=== PATIENT | female | born 1955 | race Caucasian/White ===

== ENCOUNTER 2017-02-15 10:09 | Inpatient (IN) | payer BC, OTHER ==
[~2017-02-15] VITALS: Ht 157.5 cm; Wt 90.3 kg
[2017-02-15 10:12] VITALS: BP 140/78; PULSE 74; RESP 14; TEMP 98.2; O2SAT 98
[2017-02-15] MEDS ORDERED: ALLE60TA PO (10:39)
[2017-02-15] MEDS ORDERED: FENO50TA PO (10:39)
[2017-02-15] MEDS ORDERED: MONT10TA2 PO (10:39)
[2017-02-15] MEDS ORDERED: NEXI40CA PO (10:39)
[2017-02-15] MEDS ORDERED: [UNRECOGNIZED DRUG - CODE] IV (10:39)
[2017-02-15] MEDS ORDERED: LIPI20TA PO (10:39)
[2017-02-15] MEDS ORDERED: BYST5TAB2 PO (10:39)
[2017-02-15] MEDS ORDERED: FLUT1SPR5 EACH NARE (10:39)
[2017-02-15] MEDS ORDERED: VENTAER INH (10:39)
[2017-02-15] MEDS ORDERED: GABA600T PO (10:39)
[2017-02-15] MEDS ORDERED: ZANT300T PO (10:39)
[2017-02-15] MEDS ORDERED: METF1000 PO (10:39)
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
[2017-02-15] MEDS ORDERED: KETOROLAC TROMETHAMINE 60 MG/2 ML (IM) VIAL IM ONE (10:45)
--- NOTE | 2017-02-15 11:38 | RADRPT ---
EXAM DATE/TIME: 02/15/2017 11:17 [facility] COMPARISON: No previous studies available for comparison. INDICATIONS : Left ankle pain, fall. MEDICAL HISTORY : None. SURGICAL HISTORY : None. ENCOUNTER: Initial ACUITY: 1 day PAIN SCORE: 10/10 LOCATION: Left lateral ankle FINDINGS: Three view exam was performed of the left ankle. The bony structures are in normal alignment. No ev idence of fracture, dislocation, or soft tissue swelling. The ankle mortise is intact. No radiopaqu e foreign bodies are seen. Bony mineralization is normal. CONCLUSION: 1. No acute fracture or dislocation. Jose Aguilar MD on February 15, 2017 at 11:36 Board Certified Radiologist. This report was verified electronically.
--- NOTE | 2017-02-15 11:41 | RADRPT ---
EXAM DATE/TIME: 02/15/2017 11:14 [facility] COMPARISON: No previous studies available for comparison. INDICATIONS : Left knee pain, fall. MEDICAL HISTORY : None. SURGICAL HISTORY : None. ENCOUNTER: Initial ACUITY: 1 day PAIN SCORE: 10/10 LOCATION: Left anterior knee FINDINGS: There is a nondisplaced slightly comminuted depressed lateral tibial plateau fracture. Remaining osse ous structures appear intact. Mild soft tissue swelling about the knee. CONCLUSION: 1. Nondisplaced slightly comminuted depressed lateral tibial plateau fracture. Jose Aguilar MD on February 15, 2017 at 11:38 Board Certified Radiologist. This report was verified electronically.
[2017-02-15] MEDS ORDERED: SODIUM CHLORIDE 0.9% FLUSH 10 ML FLUSH IV FLUSH PRN (11:45)
--- NOTE | 2017-02-15 11:46 | RADRPT ---
EXAM DATE/TIME: 02/15/2017 11:21 [facility] COMPARISON: No previous studies available for comparison. INDICATIONS : Left foot pain, fall. MEDICAL HISTORY : None. SURGICAL HISTORY : None. ENCOUNTER: Initial ACUITY: 1 day PAIN SCORE: 8/10 LOCATION: Left lateral foot FINDINGS: Small osseous fragment projecting medial to the distal first metatarsal. Remaining osseous structures appear intact. Joint spaces are maintained. Mild soft tissue prominence in the medial forefoot. CONCLUSION: 1. Probable small avulsion fracture off the medial distal first metatarsal. Correlation with physical exam is recommended. Jose Aguilar MD on February 15, 2017 at 11:42 Board Certified Radiologist. This report was verified electronically.
--- NOTE | 2017-02-15 11:49 | RADRPT ---
EXAM DATE/TIME: 02/15/2017 11:16 [facility] COMPARISON: No previous studies available for comparison. INDICATIONS : Left leg pain, fall. MEDICAL HISTORY : None. SURGICAL HISTORY : None. ENCOUNTER: Initial ACUITY: 1 day PAIN SCORE: 10/10 LOCATION: Left proximal tibia FINDINGS: Redemonstration of lateral tibial plateau fracture. Remaining osseous structures are intact. Talar do me is intact. No significant soft tissue swelling. CONCLUSION: 1. Redemonstration of lateral tibial plateau fracture. Jose Aguilar MD on February 15, 2017 at 11:45 Board Certified Radiologist. This report was verified electronically.
[2017-02-15] MEDS ORDERED: MORPHINE SULFATE 4 MG/ML INJ IV PUSH ONE (12:15)
[2017-02-15] MEDS ORDERED: ONDANSETRON HCL 4 MG/2 ML VIAL IV PUSH ONE (12:15)
[2017-02-15 12:45] LABS: AUTOMATED NEUTROPHIL # 3.4 TH/MM3 (1.8-7.7); BASOPHIL % 0.6 % (0.0-2.0); EOSINOPHIL # 0.1 TH/MM3 (0-0.4); HEMATOCRIT 37.8 % (35.0-46.0); HEMO FLAGS DIFF FINAL; LYMPH % 31.4 % (9.0-44.0); LYMPHOCYTE # 1.9 TH/MM3 (1.0-4.8); MEAN CELL VOLUME 90.5 FL (80.0-100.0); MEAN CORPUSCULAR HEMOGLOBIN 30.4 PG (27.0-34.0); MEAN CORPUSCULAR HGB CONC 33.6 % (32.0-36.0); MONO % 9.9 % (0.0-8.0); NEUT % 56.1 % (16.0-70.0); PLATELET COUNT 240 TH/MM3 (150-450); RED BLOOD COUNT 4.18 MIL/MM3 (4.00-5.30); RED CELL DISTRIBUTION WIDTH 13.3 % (11.6-17.2)
[2017-02-15 13:07] LABS: ANION GAP 6 MEQ/L (5-15); AST (GOT) 36 U/L (15-37); BLOOD UREA NITROGEN 13 MG/DL (7-18); CHLORIDE 106 MEQ/L (98-107); GLOMERULAR FILTRATION RATE 75 ML/MIN (>89); POTASSIUM 4.2 MEQ/L (3.5-5.1); SODIUM (NA) 139 MEQ/L (136-145)
[2017-02-15 13:08] LABS: ALT (GPT) 51 U/L (10-53)
[2017-02-15 13:10] LABS: ALKALINE PHOSPHATASE 73 U/L (45-117); TOTAL BILIRUBIN ADULT 0.2 MG/DL (0.2-1.0)
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
[2017-02-15] MEDS ORDERED: GLUCAGON 1 MG/ML VIAL OTHER PRN (14:00)
[2017-02-15] MEDS ORDERED: DEXTROSE 50% IN WATER 50 ML VIAL(D50) IV PUSH PRN (14:00)
[2017-02-15] MEDS ORDERED: ALBUTEROL SULFATE 90 MCG/ACT HFA 8 GM INHALER INH PRN (14:00)
--- NOTE | 2017-02-15 14:09 | HHI.HP ---
[facility] Service [facility] Primary Care Physician Unknown Admission Diagnosis tibial plateau fracture Diagnoses: (1) Tibial plateau fracture, left Diagnosis: Principal Chief Complaint: pain to the left leg after a fall Travel History International Travel<30 Days: No Contact w/Intl Traveler <30 Da: No Traveled to Known Affected Are: No History of Present Illness patient is a 61 y/o female with history of asthma, diabetes,hypertension,immune deficiency, who was brought to ER after a fall. she says [place] dock [place] hit her after which she fell on her left leg and started to have pain to the left leg and left foot. she denies any head trauma or syncope. pain was mild to moderate at the time of my evaluation. she denies any chest pain, abdominal pain, dizziness or any other complaints. Review of Systems Constitutional: DENIES: Fever, Weight loss, Chills, Night Sweats Eyes: DENIES: Blurred vision, Diplopia, Vision loss, Double Vision Ears, nose, mouth, throat: DENIES: Tinnitus, Vertigo, Throat pain, Epistaxis Respiratory: DENIES: Apneas, Cough, Snoring, Wheezing, Hemoptysis, Sputum production, Shortness of breath Cardiovascular: DENIES: Chest pain, Palpitations, Syncope, Dyspnea on Exertion , PND, Lower Extremity Edema, Orthopnea, Claudication Gastrointestinal: DENIES: Abdominal pain, Black stools, Bloody stools, Constipation, Diarrhea, Nausea, Vomiting, Difficulty Swallowing, Anorexia Genitourinary: DENIES: Urinary frequency, Urgency, Hematuria, Dysuria Musculoskeletal: COMPLAINS OF: Joint pain (left leg.), DENIES: Muscle aches, Stiffness, Joint Swelling Integumentary: DENIES: Rash Neurologic: DENIES: Abnormal gait, Headache, Localized weakness, Paresthesias, Seizures, Speech Problems, Tremor, Poor Balance Psychiatric: DENIES: Anxiety, Confusion, Mood changes, Depression, Hallucinations, Agitation, Suicidal Ideation, Homicidal Ideation, Delusions Past Family Social History Past Medical History diabetes mellitus asthma hypertension immune deficiency Past Surgical History hysterectomy cervical fusion shoulder surgery Reported Medications Gammagard Liquid (Immune Globulin (Human)) 10 % Inj IV EVERY 3 WEEKS Ventolin Hfa 18 GM Inh (Albuterol Sulfate) 90 Mcg/Act Aer 2 Puff INH Q4H PRN Bystolic (Nebivolol) 5 Mg Tab 5 Mg PO DAILY Gabapentin 600 Mg Tab 600 Mg PO BID Flonase Nasal [place] (Fluticasone Nasal [place]) 50 Mcg/Act [place] 50 Mcg EACH NARE BID Singulair (Montelukast Sodium) 10 Mg Tab 10 Mg PO HS Nexium (Esomeprazole DR) 40 Mg Capdr 40 Mg PO DAILY Zantac (Ranitidine HCl) 300 Mg Tab 300 Mg PO BID [place] Allergy (Fexofenadine HCl) 60 Mg Tab 60 Mg PO DAILY Metformin (Metformin HCl) 1,000 Mg Tab 1,000 Mg PO BIDPC Lipitor (Atorvastatin Calcium) 20 Mg Tab 20 Mg PO HS Tricor (Fenofibrate) 145 Mg Tab 145 Mg PO DAILY Takw with food. Allergies: Coded Allergies: Sulfa (Sulfonamide Antibiotics) (Verified Allergy, Unknown, 02/15/17) Active Ordered Medications Current Medications Ketorolac Tromethamine (Toradol Inj) 60 mg ONCE ONCE IM Last administered on 02/15/17 10:43; Start 02/15/17 at 10:45; Stop 02/15/17 at 10:46; Status DC Sodium Chloride (NS Flush) 2 ml UNSCH PRN IV FLUSH FLUSH AFTER USING IV ACCESS ; Start 02/15/17 at 11:45 Morphine Sulfate (Morphine Inj) 4 mg ONCE ONCE IV PUSH Last administered on 12:19; Start 02/15/17 at 12:15; Stop 02/15/17 at 12:17; Status DC Ondansetron HCl (Zofran Inj) 4 mg ONCE ONCE IV PUSH Last administered on 12:24; Start 02/15/17 at 12:15; Stop 02/15/17 at 12:17; Status DC Family History not relevant to this admission. Social History no smoking or drinking. Physical Exam Vital Signs Vital Signs Date Time Temp Pulse Resp B/P (MAP) Pulse Ox O2 Delivery O2 Flow Rate FiO2 02/15/17 12:49 17 02/15/17 12:24 20 02/15/17 10:12 98.2 74 14 140/78 (98) 98 Physical Exam GENERAL: This is a well-nourished, well-developed patient, in no apparent distress. SKIN: No rashes, ecchymoses or lesions. Cool and dry. HEAD: Atraumatic. Normocephalic. No temporal or scalp tenderness. EYES: Pupils equal round and reactive. Extraocular motions intact. No scleral icterus. No injection or drainage. ENT: Nose without bleeding, purulent drainage or septal hematoma. Throat without erythema, tonsillar hypertrophy or exudate. Uvula midline. Airway patent. NECK: Trachea midline. No JVD or lymphadenopathy. Supple, nontender, no meningeal signs. CARDIOVASCULAR: Regular rate and rhythm without murmurs, gallops, or rubs. RESPIRATORY: Clear to auscultation. Breath sounds equal bilaterally. No wheezes , rales, or rhonchi. GASTROINTESTINAL: Abdomen soft, non-tender, nondistended. No hepato-splenomegaly , or palpable masses. No guarding. MUSCULOSKELETAL: left leg in immobilizer NEUROLOGICAL: Awake and alert. Cranial nerves II through XII intact. Motor and sensory grossly within normal limits. Five out of 5 muscle strength in all muscle groups. Normal speech. Laboratory Laboratory Tests Test 02/15/17 12:20 White Blood Count 6.0 Red Blood Count 4.18 Hemoglobin 12.7 Hematocrit 37.8 Mean Corpuscular Volume 90.5 Mean Corpuscular Hemoglobin 30.4 Mean Corpuscular Hemoglobin Concent 33.6 Red Cell Distribution Width 13.3 Platelet Count 240 Mean Platelet Volume 9.6 Neutrophils (%) (Auto) 56.1 Lymphocytes (%) (Auto) 31.4 Monocytes (%) (Auto) 9.9 Eosinophils (%) (Auto) 2.0 Basophils (%) (Auto) 0.6 Neutrophils # (Auto) 3.4 Lymphocytes # (Auto) 1.9 Monocytes # (Auto) 0.6 Eosinophils # (Auto) 0.1 Basophils # (Auto) 0.0 CBC Comment DIFF FINAL Differential Comment Blood Urea Nitrogen 13 Creatinine 0.78 Random Glucose 104 Total Protein 7.5 Albumin 3.8 Calcium Level 9.5 Alkaline Phosphatase 73 Aspartate Amino Transf (AST/SGOT) 36 Alanine Aminotransferase (ALT/SGPT) 51 Total Bilirubin 0.2 Sodium Level 139 Potassium Level 4.2 Chloride Level 106 Carbon Dioxide Level 27.0 Anion Gap 6 Estimat Glomerular Filtration Rate 75 Result Diagram: 02/15/17 1220 02/15/17 1220 Imaging Last Impressions Tibia/Fibula X-Ray 02/15/17 1034 Signed Impressions: Service Date/Time: Wednesday, February 15, 2017 11:16 - CONCLUSION: 1. Redemonstration of lateral tibial plateau fracture. Jose Aguilar MD Knee X-Ray 02/15/17 1034 Signed Impressions: Service Date/Time: Wednesday, February 15, 2017 11:14 - CONCLUSION: 1. Nondisplaced slightly comminuted depressed lateral tibial plateau fracture. Jose Aguilar MD Foot X-Ray 02/15/17 1034 Signed Impressions: Service Date/Time: Wednesday, February 15, 2017 11:21 - CONCLUSION: 1. Probable small avulsion fracture off the medial distal first metatarsal. Correlation with physical exam is recommended. Jose Aguilar MD Ankle X-Ray 02/15/17 1034 Signed Impressions: Service Date/Time: Wednesday, February 15, 2017 11:17 - CONCLUSION: 1. No acute fracture or dislocation. MD Bibi William VTE Risk Assessment Caprini VTE Risk Assessment: Mod/High Risk (score >= 2) VTE [facility] Contraindication: LE injury/wound Caprini Risk Assessment Model Point Value = 1 Point Value = 2 Point Value = 3 Point Value = 5 Age 41-60 Minor surgery BMI > 25 kg/m2 Swollen legs Varicose veins or History of unexplained or recurrent spontaneous Oral contraceptives or hormone replacement Sepsis (< 1 month) Serious lung disease, including pneumonia (< 1 month) Abnormal pulmonary function Acute myocardial infarction Congestive heart failure (< 1 month) History of inflammatory bowel disease Medical patient at bed rest Age 61-74 Arthroscopic surgery Major open surgery (> 45 min) Laparoscopic surgery (> 45 min) Malignancy Confined to bed (> 72 hours) Immobilizing plaster cast Central venous access Age >= 75 History of VTE Family history of VTE Factor V Leiden Prothrombin [id number] Lupus anticoagulant Anticardiolipin antibodies Elevated serum homocysteine Heparin-induced thrombocytopenia Other congenital or acquired thrombophilia Stroke (< 1 month) Elective arthroplasty Hip, pelvis, or leg fracture Acute spinal cord injury (< 1 month) Prophylaxis Regimen Total Risk Factor Score Risk Level Prophylaxis Regimen 0-1 Low Early ambulation 2 Moderate Order ONE of the following: *Sequential Compression Device (SCD) *Heparin 5000 units SQ BID 3-4 Higher Order ONE of the following medications: *Heparin 5000 units SQ TID *Enoxaparin/Lovenox 40 mg SQ daily (WT < 150 kg, CrCl > 30 mL/min) *Enoxaparin/Lovenox 30 mg SQ daily (WT < 150 kg, CrCl > 10-29 mL/min) *Enoxaparin/Lovenox 30 mg SQ BID (WT < 150 kg, CrCl > 30 mL/min) AND/OR *Sequential Compression Device (SCD) 5 or more Highest Order ONE of the following medications: *Heparin 5000 units SQ TID (Preferred with Epidurals) *Enoxaparin/Lovenox 40 mg SQ daily (WT < 150 kg, CrCl > 30 mL/min) *Enoxaparin/Lovenox 30 mg SQ daily (WT < 150 kg, CrCl > 10-29 mL/min) *Enoxaparin/Lovenox 30 mg SQ BID (WT < 150 kg, CrCl > 30 mL/min) AND *Sequential Compression Device (SCD) Assessment and Plan Assessment and Plan A/P - left tibia plateau fracture after a fall NPO for now- start IV fluid- continue pain control and consult ortho -questionable distal first metatarsal fracture- podiatry was notified by the ER- awaiting recommendations- continue pain control. -diabetes mellitus; hold metformin- accu-check with SSI -hypertension/dyslipidemia ; resume home meds -immune deficiency; on IVIG transfusion q three weeks. ( last transfusion last week.) -DVT prophylaxis- pending ortho evaluation. Discussed Condition With ER physician and the patient. Physician Certification 2 Midnight Certification Type: Admission for Inpatient Services Order for Inpatient Services The services are ordered in accordance with Medicare regulations or non- Medicare payer requirements, as applicable. In the case of services not specified as inpatient-only, they are appropriately provided as inpatient services in accordance with the 2-midnight benchmark. Estimated LOS (days): 2 days is the estimated time the patient will need to remain in the hospital, assuming treatment plan goals are met and no additional complications. Post-Hospital Plan: Not yet determined Physician Certification 2 Midnight Certification Type: Admission for Inpatient Services Order for Inpatient Services The services are ordered in accordance with Medicare regulations or non- Medicare payer requirements, as applicable. In the case of services not specified as inpatient-only, they are appropriately provided as inpatient services in accordance with the 2-midnight benchmark. Estimated LOS (days): 2 days is the estimated time the patient will need to remain in the hospital, assuming treatment plan goals are met and no additional complications. Post-Hospital Plan: Not yet determined Problem Qualifiers (1) Tibial plateau fracture, left: Qualified Codes: S82.142A - Displaced bicondylar fracture of left tibia, initial encounter for closed fracture Irma Guerrero MD Feb 15, 2017 14:08
--- NOTE | 2017-02-15 14:24 | RADRPT ---
EXAM DATE/TIME: 02/15/2017 12:29 [place] COMPARISON: KNEE LEFT COMPLETE (4VWS), February 15, 2017, 11:14. INDICATIONS : Left knee pain. RADIATION DOSE: 7.29 CTDIvol (mGy) MEDICAL HISTORY : None SURGICAL HISTORY : None. ENCOUNTER: Initial ACUITY: 1 day PAIN SCALE: 10/10 LOCATION: Left knee TECHNIQUE: Volumetric scanning of the knee was performed. Using automated exposure control and adjustment of th e mA and/or kV according to patient size, radiation dose was kept as low as reasonably achievable to obtain optimal diagnostic quality images. DICOM format image data is available electronically for re view and comparison. FINDINGS: There is a mildly depressed lateral tibial plateau fracture with 34 mm depression of the central and lateral aspect of the lateral tibial plateau. There is a minimally displaced adjacent fibular head fr acture. The medial tibial plateau is intact. The femur is intact. Patella is intact. A moderate hemar throsis is noted. CONCLUSION: Mildly depressed lateral tibial plateau fracture Price Downey MD on February 15, 2017 at 14:20 Board Certified Radiologist. This report was verified electronically.
[2017-02-15 15:24] VITALS: BP 102/54; PULSE 69
[2017-02-15 15:37] VITALS: BP 134/61; PULSE 78; RESP 16; TEMP 97.6; O2SAT 95
[2017-02-15] MEDS: MORPHINE SULFATE 2 MG/ML INJ IV PUSH PRN ×2 (16:49→21:15)
[2017-02-15] MEDS: INSULIN ASPART SUPPLEMENTAL SCALE SQ SCH ×2 (17:00→19:47)
[2017-02-15] MEDS: SODIUM CHLOR 0.9% 1000 ML INJ 1,000 ML IV SCH ×2 (17:50→19:47)
[2017-02-15] MEDS: ATORVASTATIN 20 MG TAB PO SCH ×2 (19:33→19:47)
[2017-02-15] MEDS: MONTELUKAST SODIUM 10 MG TAB PO SCH ×2 (19:33→19:47)
[2017-02-15] MEDS: FLUTICASONE PROPIONATE 50 MCG/ACT 16 GM NASAL SPRAY EACH NARE SCH (19:47)
[2017-02-15 20:00] VITALS: BP 128/58; PULSE 72; RESP 17; TEMP 98.4; O2SAT 95
[2017-02-15] MEDS ORDERED: SODIUM CHLORID 0.9% 500 ML IV PRN (20:00)
[2017-02-15] MEDS ORDERED: LACTATED RINGER'S 1000 ML IV PRN (20:00)
[2017-02-15] MEDS ORDERED: POVIDONE IODINE 5% (ANTISEPSIS KIT) 4 APPLICATIONS EACH NARE PRN (20:00)
[2017-02-15] MEDS ORDERED: INSULIN HUMAN REGULAR 1,000 UNITS/10 ML VIAL SQ PRN (20:00)
[2017-02-15] MEDS ORDERED: CHLORHEXIDINE GLUCONATE 2 % 1 PACK (2 CLOTHS) TOPICAL PRN (20:00)
[2017-02-15] MEDS ORDERED: METOPROLOL TARTRATE 25 MG TAB PO PRN (20:00)
[2017-02-15] MEDS ORDERED: MELATONIN 5 MG TAB PO ONE ×2 (20:30→20:45)
[2017-02-15] MEDS ORDERED: ZOLPIDEM TARTRATE 5 MG TAB PO ONE (20:30)
--- NOTE | 2017-02-15 22:40 | PD.CONS ---
HPI Service Orthopedic Surgeons Consult Requested By Reason for Consult Left tibial plateau fracture Primary Care Physician Unknown Admission Diagnosis tibial plateau fracture Diagnoses: (1) Tibial plateau fracture, left Diagnosis: Principal Chief Complaint: Tibial plateau fracture History of Present Illness 61yo F with multiple medical problems presents with L knee pain after fall, and found to have tibial plateau fracture Denies head trauma, CP, SOB, AP, N/V. Review of Systems Constitutional: DENIES: Fever Endocrine: DENIES: Polydipsia Eyes: DENIES: Blurred vision Ears, nose, mouth, throat: DENIES: Running Nose Respiratory: DENIES: Cough Cardiovascular: DENIES: Chest pain Gastrointestinal: DENIES: Abdominal pain Genitourinary: DENIES: Urinary frequency Musculoskeletal: COMPLAINS OF: Joint pain, Joint Swelling Integumentary: DENIES: Rash Hematologic/lymphatic: DENIES: Bruising Immunologic/allergic: DENIES: Eczema Neurologic: DENIES: Localized weakness Psychiatric: DENIES: Anxiety Past Family Social History Past Medical History diabetes mellitus asthma hypertension immune deficiency Past Surgical History hysterectomy cervical fusion shoulder surgery Allergies: Coded Allergies: Sulfa (Sulfonamide Antibiotics) (Verified Allergy, Unknown, 02/15/17) Active Ordered Medications Current Medications Medications (Trade) Dose Ordered Sig/Katlin Route Start Time Stop Time Status Last Admin (NS Flush) 2 ml UNSCH PRN IV FLUSH 02/15/17 11:45 (D50w (Vial) Inj) 50 ml UNSCH PRN IV PUSH 02/15/17 14:00 (Glucagon Inj) 1 mg UNSCH PRN OTHER 02/15/17 14:00 (NovoLOG SUPPLEMENTAL SCALE) 1 ACHS SLIDING SCALE SQ 02/15/17 17:00 (Proair Hfa Inh) 2 puff Q4H PRN INH 02/15/17 14:00 (Lipitor) 20 mg HS PO 02/15/17 21:00 02/15/17 19:47 (Singulair) 10 mg HS PO 02/15/17 21:00 02/15/17 19:47 (Bystolic) 5 mg DAILY PO 02/16/17 09:00 (Protonix) 40 mg DAILY PO 02/16/17 09:00 (Flonase Blake Spr) 1 spray BID EACH NARE 02/15/17 21:00 02/15/17 19:47 Sodium Chloride 1,000 ml @ 100 mls/hr Q10H IV 02/15/17 14:00 02/15/17 17:50 (Zofran Inj) 4 mg Q8HR PRN IV PUSH 02/15/17 14:00 (Morphine Inj) 2 mg Q4H PRN IV PUSH 02/15/17 14:00 02/15/17 21:15 Lactated Ringer's 1,000 ml @ 30 mls/hr Q24H PRN IV 02/15/17 20:00 02/18/17 19:59 Sodium Chloride 500 ml @ 30 mls/hr [id number] PRN IV 02/15/17 20:00 02/18/17 19:59 (Lopressor) 25 mg SCREEN STRETCHER PRN PO 02/15/17 20:00 02/18/17 19:59 (Betadine 5% Antisepsis Kit) 1 applic SCREEN STRETCHER PRN EACH NARE 02/15/17 20:00 02/18/17 19:59 (Chlorhexidine 2% Cloth) 3 pack SCREEN STRETCHER PRN TOPICAL 02/15/17 20:00 02/18/17 19:59 (NovoLIN R INJ) See Protocol Table ... SCREEN STRETCHER PRN SQ 02/15/17 20:00 02/18/17 19:59 Reported Meds & Active Scripts Active Reported Gammagard Liquid (Immune Globulin (Human)) 10 % Inj IV EVERY 3 WEEKS Ventolin Hfa 18 GM Inh (Albuterol Sulfate) 90 Mcg/Act Aer 2 Puff INH Q4H PRN Bystolic (Nebivolol) 5 Mg Tab 5 Mg PO DAILY Gabapentin 600 Mg Tab 600 Mg PO BID Flonase Nasal [place] (Fluticasone Nasal [place]) 50 Mcg/Act [place] 50 Mcg EACH NARE BID Singulair (Montelukast Sodium) 10 Mg Tab 10 Mg PO HS Nexium (Esomeprazole DR) 40 Mg Capdr 40 Mg PO DAILY Zantac (Ranitidine HCl) 300 Mg Tab 300 Mg PO BID [place]ia Allergy (Fexofenadine HCl) 60 Mg Tab 60 Mg PO DAILY Metformin (Metformin HCl) 1,000 Mg Tab 1,000 Mg PO BIDPC Lipitor (Atorvastatin Calcium) 20 Mg Tab 20 Mg PO HS Tricor (Fenofibrate) 145 Mg Tab 145 Mg PO DAILY Takw with food. Family History not relevant to this admission. Social History no smoking or drinking. Physical Exam Vital Signs Vital Signs Date Time Temp Pulse Resp B/P (MAP) Pulse Ox O2 Delivery O2 Flow Rate FiO2 02/15/17 20:00 98.4 72 17 128/58 (81) 95 02/15/17 16:54 16 02/15/17 15:37 97.6 78 16 134/61 (85) 95 02/15/17 15:25 02/15/17 15:24 69 102/54 (70) 02/15/17 12:49 17 02/15/17 12:24 20 02/15/17 10:12 98.2 74 14 140/78 (98) 98 Laboratory Laboratory Tests Test 02/15/17 12:20 White Blood Count 6.0 Red Blood Count 4.18 Hemoglobin 12.7 Hematocrit 37.8 Mean Corpuscular Volume 90.5 Mean Corpuscular Hemoglobin 30.4 Mean Corpuscular Hemoglobin Concent 33.6 Red Cell Distribution Width 13.3 Platelet Count 240 Mean Platelet Volume 9.6 Neutrophils (%) (Auto) 56.1 Lymphocytes (%) (Auto) 31.4 Monocytes (%) (Auto) 9.9 Eosinophils (%) (Auto) 2.0 Basophils (%) (Auto) 0.6 Neutrophils # (Auto) 3.4 Lymphocytes # (Auto) 1.9 Monocytes # (Auto) 0.6 Eosinophils # (Auto) 0.1 Basophils # (Auto) 0.0 CBC Comment DIFF FINAL Differential Comment Blood Urea Nitrogen 13 Creatinine 0.78 Random Glucose 104 Total Protein 7.5 Albumin 3.8 Calcium Level 9.5 Alkaline Phosphatase 73 Aspartate Amino Transf (AST/SGOT) 36 Alanine Aminotransferase (ALT/SGPT) 51 Total Bilirubin 0.2 Sodium Level 139 Potassium Level 4.2 Chloride Level 106 Carbon Dioxide Level 27.0 Anion Gap 6 Estimat Glomerular Filtration Rate 75 Result Diagram: 02/15/17 1220 02/15/17 1220 Assessment & Plan Assessment and Plan 61yo F with closed left tibial plateau fracture 1. NPO at midnight 2. Plan for OR tomorrow for ORIF L tibial plateau 3. Pain control 4. Elevate extremity Lavinia Rae MD Feb 15, 2017 22:40
[2017-02-15] MEDS: MORPHINE SULFATE 4 MG/ML INJ IV PRN (23:34)
[2017-02-15] MEDS ORDERED: MELA1TAB18 PO (23:53)
[2017-02-15] MEDS ORDERED: AMBI5TAB PO (23:54)
[2017-02-16] VITALS (7 sets, daily range): BP systolic 102–144; BP diastolic 53–71; PULSE 71–95; RESP 12–18; TEMP 96.7–99.3; O2SAT 92–97
[2017-02-16] MEDS: MORPHINE SULFATE 4 MG/ML INJ IV PRN ×5 (02:42→22:58)
[2017-02-16] MEDS: SODIUM CHLOR 0.9% 1000 ML INJ 1,000 ML IV SCH ×2 (02:44→19:49)
--- NOTE | 2017-02-16 05:17 | EKG ---
Date Performed: 02/15/2017 Time Performed: 12:50:59 PTAGE: 61 years EKG: Sinus rhythm POSSIBLE RIGHT VENTRICULAR CONDUCTION DELAY PROBABLE INFERIOR MYOCARDIAL INFARCTION MODERATE T-WAVE ABNORMALITY, CONSIDER ANTERIOR ISCHEMIA ABNORMAL ECG NO PREVIOUS TRACING DOCTOR: Elieser Rodriguez Interpretating Date/Time 02/16/2017 05:08:44
[2017-02-16] MEDS ORDERED: XARE10TA PO (07:11)
[2017-02-16] MEDS ORDERED: HYDR-3583 PO (07:11)
[2017-02-16] MEDS ORDERED: WALKER/ADULT/FO1 MIS (07:11)
--- NOTE | 2017-02-16 07:18 | PD.ORT.PN ---
Subjective Subjective Remarks reports L knee pain and foot pain, otherwise doing well. Denies fevers chills, N /V Objective Vitals Vital Signs Date Time Temp Pulse Resp B/P (MAP) Pulse Ox O2 Delivery O2 Flow Rate FiO2 02/16/17 04:00 97.0 89 18 121/62 (81) 95 02/16/17 00:00 97.5 71 16 124/61 (82) 97 02/15/17 20:00 98.4 72 17 128/58 (81) 95 02/15/17 16:54 16 02/15/17 15:37 97.6 78 16 134/61 (85) 95 02/15/17 15:25 02/15/17 15:24 69 102/54 (70) 02/15/17 12:49 17 02/15/17 12:24 20 02/15/17 10:12 98.2 74 14 140/78 (98) 98 I/O 02/15/17 02/15/17 02/15/17 02/16/17 02/16/17 02/16/17 07:00 15:00 23:00 07:00 15:00 23:00 Intake Total 0 ml Balance 0 ml Intake Oral 0 ml # Voids 2 Result Diagram: 02/15/17 1220 02/15/17 1220 Imaging Last 24 hours Impressions Tibia/Fibula X-Ray 02/15/17 1034 Signed Impressions: Service Date/Time: Wednesday, February 15, 2017 11:16 - CONCLUSION: 1. Redemonstration of lateral tibial plateau fracture. Jose Aguilar MD Knee X-Ray 02/15/17 1034 Signed Impressions: Service Date/Time: Wednesday, February 15, 2017 11:14 - CONCLUSION: 1. Nondisplaced slightly comminuted depressed lateral tibial plateau fracture. Jose Aguilar MD Foot X-Ray 02/15/17 1034 Signed Impressions: Service Date/Time: Wednesday, February 15, 2017 11:21 - CONCLUSION: 1. Probable small avulsion fracture off the medial distal first metatarsal. Correlation with physical exam is recommended. Jose Aguilar MD Ankle X-Ray 02/15/17 1034 Signed Impressions: Service Date/Time: Wednesday, February 15, 2017 11:17 - CONCLUSION: 1. No acute fracture or dislocation. Jose Aguilar MD Objective Remarks L knee without wound. TTP about lateral plateau. Minimal swelling. NVI distally. Brisk cap refill Assessment & Plan Assessment and Plan 61yo F with closed left tibial plateau fracture 1. NPO for surgery today 2. Plan for OR today for ORIF L tibial plateau 3. Pain control 4. Elevate extremity Lavinia Rae MD Feb 16, 2017 07:18
[2017-02-16] MEDS: INSULIN ASPART SUPPLEMENTAL SCALE SQ SCH ×4 (08:00→20:12)
[2017-02-16] MEDS ORDERED: ACETAMINOPHEN 1000 MG/100 ML 100 ML IV ONE (08:03)
[2017-02-16] MEDS: NEBIVOLOL 5 MG TAB PO SCH (08:07)
[2017-02-16] MEDS: PANTOPRAZOLE SOD 40 MG DELAYED RELEASE TAB PO SCH (08:08)
[2017-02-16] MEDS: FLUTICASONE PROPIONATE 50 MCG/ACT 16 GM NASAL SPRAY EACH NARE SCH ×2 (08:09→19:49)
--- NOTE | 2017-02-16 08:16 | HHI.PR ---
Subjective Remarks in no acute distress. has some pain to the left leg. awaiting surgery. d/w the RN and no acute issues over night. Objective Vitals Vital Signs Date Time Temp Pulse Resp B/P (MAP) Pulse Ox O2 Delivery O2 Flow Rate FiO2 02/16/17 04:00 97.0 89 18 121/62 (81) 95 02/16/17 00:00 97.5 71 16 124/61 (82) 97 02/15/17 20:00 98.4 72 17 128/58 (81) 95 02/15/17 16:54 16 02/15/17 15:37 97.6 78 16 134/61 (85) 95 02/15/17 15:25 02/15/17 15:24 69 102/54 (70) 02/15/17 12:49 17 02/15/17 12:24 20 02/15/17 10:12 98.2 74 14 140/78 (98) 98 I/O 02/15/17 02/15/17 02/15/17 02/16/17 02/16/17 02/16/17 07:00 15:00 23:00 07:00 15:00 23:00 Intake Total 1300 ml Balance 1300 ml Intake Oral 0 ml IV Total 1300 ml # Voids 2 Result Diagram: 02/15/17 1220 02/15/17 1220 Imaging Last Impressions Tibia/Fibula X-Ray 02/15/171033 Signed Impressions: Service Date/Time: Wednesday, February 15, 2017 11:16 - CONCLUSION: 1. Redemonstration of lateral tibial plateau fracture. Jose Aguilar MD Knee X-Ray 02/15/171033 Signed Impressions: Service Date/Time: Wednesday, February 15, 2017 11:14 - CONCLUSION: 1. Nondisplaced slightly comminuted depressed lateral tibial plateau fracture. Jose Aguilar MD Foot X-Ray 02/15/171033 Signed Impressions: Service Date/Time: Wednesday, February 15, 2017 11:21 - CONCLUSION: 1. Probable small avulsion fracture off the medial distal first metatarsal. Correlation with physical exam is recommended. Jose Aguilar MD Ankle X-Ray 02/15/171033 Signed Impressions: Service Date/Time: Wednesday, February 15, 2017 11:17 - CONCLUSION: 1. No acute fracture or dislocation. Jose Aguilar MD Lower Extremity CT 02/15/17 0000 Signed Impressions: Service Date/Time: Wednesday, February 15, 2017 12:29 - CONCLUSION: Mildly depressed lateral tibial plateau fracture Price Downey MD Objective Remarks GENERAL: This is a well-nourished, well-developed patient, in no apparent distress. CARDIOVASCULAR: Regular rate and regular rhythm without murmurs, gallops, or rubs. RESPIRATORY: Clear to auscultation. Breath sounds equal bilaterally. No wheezes , rales, or rhonchi. GASTROINTESTINAL: Abdomen soft, non-tender, nondistended. Normal, active bowel sounds MUSCULOSKELETAL: left lower extremity in immobilizer NEURO: Alert & Oriented x4 to person, place, time, situation. Moves all ext x4 Medications and IVs Current Medications Ketorolac Tromethamine (Toradol Inj) 60 mg ONCE ONCE IM Last administered on 02/15/17 10:43; Start 02/15/17 at 10:45; Stop 02/15/17 at 10:46; Status DC Sodium Chloride (NS Flush) 2 ml UNSCH PRN IV FLUSH FLUSH AFTER USING IV ACCESS ; Start 02/15/17 at 11:45 Morphine Sulfate (Morphine Inj) 4 mg ONCE ONCE IV PUSH Last administered on 12:19; Start 02/15/17 at 12:15; Stop 02/15/17 at 12:17; Status DC Ondansetron HCl (Zofran Inj) 4 mg ONCE ONCE IV PUSH Last administered on 12:24; Start 02/15/17 at 12:15; Stop 02/15/17 at 12:17; Status DC Dextrose (D50w (Vial) Inj) 50 ml UNSCH PRN IV PUSH HYPOGLYCEMIA-SEE COMMENTS; Start 02/15/17 at 14:00 Glucagon (Glucagon Inj) 1 mg UNSCH PRN OTHER HYPOGLYCEMIA-SEE COMMENTS; Start 02/15/17 at 14:00 Insulin Aspart (NovoLOG SUPPLEMENTAL SCALE) 1 ACHS SLIDING SCALE SQ ; Start at 17:00 Albuterol Sulfate (Proair Hfa Inh) 2 puff Q4H PRN INH SHORTNESS OF BREATH; Start 02/15/17 at 14:00 Atorvastatin Calcium (Lipitor) 20 mg HS PO Last administered on 02/15/17 19:47 ; Start 02/15/17 at 21:00 Montelukast Sodium (Singulair) 10 mg HS PO Last administered on 02/15/17 19:47 ; Start 02/15/17 at 21:00 Nebivolol (Bystolic) 5 mg DAILY PO ; Start 02/16/17 at 09:00 Pantoprazole Sodium (Protonix) 40 mg DAILY PO ; Start 02/16/17 at 09:00 Fluticasone Propionate (Flonase Blake Spr) 1 spray BID EACH NARE Last administered on 02/15/17 19:47; Start 02/15/17 at 21:00 Sodium Chloride 1,000 ml @ 100 mls/hr Q10H IV Last administered on 02/16/17 02:44; Start 02/15/17 at 14:00 Ondansetron HCl (Zofran Inj) 4 mg Q8HR PRN IV PUSH NAUSEA; Start 02/15/17 at 14 :00 Morphine Sulfate (Morphine Inj) 2 mg Q4H PRN IV PUSH PAIN > 3 Last administered on 02/15/17 21:15; Start 02/15/17 at 14:00; Stop 02/15/17 at 23:15 ; Status DC Lactated Ringer's 1,000 ml @ 30 mls/hr Q24H PRN IV SEE LABEL COMMENTS; Start 02/15/17 at 20:00; Stop 02/18/17 at 19:59 Sodium Chloride 500 ml @ 30 mls/hr [id number] PRN IV SEE LABEL COMMENTS; Start at 20:00; Stop 02/18/17 at 19:59 Metoprolol Tartrate (Lopressor) 25 mg POWER HOUSE CONTROL ROOM OPERATOR PRN PO SEE LABEL COMMENTS; Start 02/15/17 at 20:00; Stop 02/18/17 at 19:59 Povidone Iodine (Betadine 5% Antisepsis Kit) 1 applic POWER HOUSE CONTROL ROOM OPERATOR PRN EACH NARE SEE LABEL COMMENTS; Start 02/15/17 at 20:00; Stop 02/18/17 at 19:59 Chlorhexidine Gluconate (Chlorhexidine 2% Cloth) 3 pack POWER HOUSE CONTROL ROOM OPERATOR PRN TOPICAL SEE LABEL COMMENTS; Start 02/15/17 at 20:00; Stop 02/18/17 at 19:59 Insulin Human Regular (NovoLIN R INJ) See Protocol Table ... POWER HOUSE CONTROL ROOM OPERATOR PRN SQ SEE PROTOCOL TABLE; Start 02/15/17 at 20:00; Stop 02/18/17 at 19:59 Zolpidem Tartrate (Ambien) 5 mg ONCE ONCE PO Last administered on 02/15/17 21 :15; Start 02/15/17 at 20:30; Stop 02/15/17 at 20:34; Status DC Melatonin (Melatonin) 10 mg ONCE ONCE PO ; Start 02/15/17 at 20:30; Stop at 20:34; Status DC Melatonin (Melatonin) 10 mg ONCE ONCE PO Last administered on 02/15/17 23:34 ; Start 02/15/17 at 20:45; Stop 02/15/17 at 20:46; Status DC Morphine Sulfate (Morphine Inj) 3 mg Q3H PRN IV PAIN > 3 Last administered on 02/16/17 02:42; Start 02/15/17 at 23:30 Acetaminophen 100 ml @ As Directed STK-MED ONCE IV ; Start 02/16/17 at 08:03; Stop 02/16/17 at 08:04; Status DC A/P Problem List: (1) Tibial plateau fracture, left ICD Code: S82.142A - Displaced bicondylar fracture of left tibia, initial encounter for closed fracture Status: Acute Assessment and Plan A/P - left tibia plateau fracture after a fall NPO for now- continue IV fluid- continue pain control . ortho consult appreciated and plan for surgery today. -questionable distal first metatarsal fracture- podiatry was notified by the ER- surgical shoe per podiatry recommendations. -diabetes mellitus; hold metformin- accu-check with SSI -hypertension/dyslipidemia ; resumed home meds -immune deficiency; on IVIG transfusion q three weeks. ( last transfusion last week.) -DVT prophylaxis- pending ortho intervention. Problem Qualifiers (1) Tibial plateau fracture, left: Qualified Codes: S82.142A - Displaced bicondylar fracture of left tibia, initial encounter for closed fracture Irma Guerrero MD Feb 16, 2017 08:16
[2017-02-16] MEDS ORDERED: GENTAMICIN SULFATE 80 MG/2 ML VIAL ONE (10:13)
[2017-02-16] MEDS ORDERED: ceFAZolin 2 GM PREMIX 50 ML ONE (10:13)
[2017-02-16] MEDS ORDERED: VANCOMYCIN HCL 1000 MG VIAL ONE (11:04)
[2017-02-16] MEDS ORDERED: MIDAZOLAM HCL 2 MG/2 ML VIAL IV ONE (12:00)
[2017-02-16] MEDS ORDERED: NEOSTIGMINE 3 MG/3 ML SYR IV ONE (12:00)
[2017-02-16] MEDS ORDERED: PHENYLEPH/NS 1000 MCG/10 ML SYR IV ONE (12:00)
[2017-02-16] MEDS ORDERED: DEXAMETHASONE SOD PHOS 4 MG/ML VIAL IV ONE (12:00)
[2017-02-16] MEDS ORDERED: ePHEDrine/NS 25 MG/5 ML SYR IV ONE (12:00)
[2017-02-16] MEDS ORDERED: ONDANSETRON HCL 4 MG/2 ML VIAL IV PUSH ONE (12:00)
[2017-02-16] MEDS ORDERED: GLYCOPYRROLATE 1 MG/5 ML SYRINGE IV PUSH ONE (12:00)
[2017-02-16] MEDS ORDERED: LIDOCAINE HCL 1% PF 5 ML AMPULE OTHER ONE (12:00)
[2017-02-16] MEDS ORDERED: PROPOFOL 200 MG/20 ML AMP IV ONE (12:00)
[2017-02-16] MEDS ORDERED: ROCURONIUM INJ 50 MG/5 ML VIAL IV ONE (12:00)
[2017-02-16] MEDS ORDERED: BUPIVACAINE/EPINEPHRINE 0.25% 50 ML VIAL ONE (12:06)
--- NOTE | 2017-02-16 12:18 | HHI.PR ---
cc: Lavinia Rae MD Immediate Post Op Note Procedure Date: Feb 16, 2017 Pre Op Diagnosis: (1) Tibial plateau fracture, left Post Op Diagnosis: Lateral tibial plateau fracture Surgeon: Lavinia Rae Blueprint Developer(s): Duncan Guerra Procedure: ORIF left tibial plateau fracture Findings: Lateral tibial plateau depression Complications: none Specimen(s) removed: none Estimated blood loss: 100mL Anesthesia: General Drains: None Patient to: PACU Patient Condition: Good Implant/Devices: SEE IMPLANT LOG (if applicable) Date/Time of Procedure: SEE SURGICAL CARE RECORD Lavinia Rae MD Feb 16, 2017 12:18
[2017-02-16] MEDS ORDERED: Post-op Orders (for Pharmacy) MISC XX ONE (12:30)
[2017-02-16] MEDS ORDERED: SODIUM CHLORIDE 0.9% FLUSH 10 ML FLUSH IV FLUSH PRN (12:30)
--- NOTE | 2017-02-16 12:33 | RADRPT ---
EXAM DATE/TIME: 02/16/2017 12:01 [facility] COMPARISON: FLUOROSCOPY PORTABLE UP TO 1HR, February 16, 2017, 0:00. INDICATIONS : Open reduction internal fixation of left tibial plateau fracture MEDICAL HISTORY : None. SURGICAL HISTORY : None. ENCOUNTER: Initial ACUITY: 1 day PAIN SCORE: Non-responsive. LOCATION: Left proximal tibia FINDINGS: Intraoperative exam demonstrates plating of the patient's tibial fracture. The alignment was plating is excellent. CONCLUSION: 1. Excellent alignment of the tibial plateau fracture post plating. Duran Crum MD on February 16, 2017 at 12:31 Board Certified Radiologist. This report was verified electronically.
[2017-02-16] MEDS ORDERED: *morphine SULFATE 8 MG/ML PERIprocedure ONLY ONE ×2 (12:56→13:06)
[2017-02-16] MEDS ORDERED: DO NOT ADM ANY ANTICOAGULANT DRUGS PRN (13:15)
[2017-02-16] MEDS ORDERED: *HYDROmorphone PF 1 MG VIAL PERIprocedural Use ONLY ONE (13:23)
--- NOTE | 2017-02-16 13:44 | RADRPT ---
EXAM DATE/TIME: 02/16/2017 12:46 [facility] COMPARISON: KNEE LEFT LTD (1 OR 2VWS), February 16, 2017, 12:01. INDICATIONS : Post operative for proximal tibia repair. MEDICAL HISTORY : None. SURGICAL HISTORY : None. ENCOUNTER: Initial ACUITY: 1 day PAIN SCORE: Non-responsive. LOCATION: Left knee. FINDINGS: The exam demonstrates interval plating of the patient's tibial plateau fracture. The alignment of the fracture is excellent. The plate is well positioned. There surgical leo in good position. CONCLUSION: 1. Excellent alignment of the patient's fracture post plating. Duran Crum MD on February 16, 2017 at 13:42 Board Certified Radiologist. This report was verified electronically.
[2017-02-16] MEDS: SODIUM CHLORIDE 0.9% FLUSH 10 ML FLUSH IV FLUSH SCH (19:54)
[2017-02-16] MEDS: DOCUSATE SODIUM 50 MG/SENNA 8.6 MG TAB PO SCH (19:54)
[2017-02-16] MEDS: ATORVASTATIN 20 MG TAB PO SCH (19:54)
[2017-02-16] MEDS: MONTELUKAST SODIUM 10 MG TAB PO SCH (19:54)
[2017-02-16] MEDS: ONDANSETRON HCL 4 MG/2 ML VIAL IV PUSH PRN (20:12)
[2017-02-17] VITALS (8 sets, daily range): BP systolic 121–145; BP diastolic 58–69; PULSE 81–97; RESP 16–18; TEMP 97–100.4; O2SAT 93–99
[2017-02-17] MEDS: MORPHINE SULFATE 4 MG/ML INJ IV PRN ×2 (02:10→05:09)
[2017-02-17] MEDS: ONDANSETRON HCL 4 MG/2 ML VIAL IV PUSH PRN (05:09)
[2017-02-17] MEDS: SODIUM CHLOR 0.9% 1000 ML INJ 1,000 ML IV SCH ×2 (05:16→16:00)
--- NOTE | 2017-02-17 06:47 | PD.ORT.PN ---
Subjective Subjective Remarks reports L knee pain and foot pain, otherwise doing well. Denies fevers chills, N /V Objective Vitals Vital Signs Date Time Temp Pulse Resp B/P (MAP) Pulse Ox O2 Delivery O2 Flow Rate FiO2 02/17/17 04:57 21 02/17/17 03:00 99.9 89 18 121/58 (79) 93 02/16/17 23:32 99.3 86 18 102/53 (69) 94 02/16/17 19:09 96.7 86 18 136/71 (92) 92 02/16/17 17:09 16 02/16/17 16:00 97.0 95 16 109/61 (77) 94 02/16/17 14:15 96.7 83 12 129/59 (82) 95 02/16/17 13:33 81 19 128/65 (86) 92 Nasal Cannula 4 02/16/17 13:00 83 19 134/67 (89) 94 Nasal Cannula 4 02/16/17 12:45 78 19 137/73 (94) 93 Nasal Cannula 4 02/16/17 12:39 98.9 82 19 136/62 (86) 95 Nasal Cannula 4 02/16/17 08:00 98.1 73 16 144/67 (92) 95 I/O 02/16/17 02/16/17 02/16/17 02/17/17 02/17/17 02/17/17 07:00 15:00 23:00 07:00 15:00 23:00 Intake Total 1300 ml 2080 ml 1210 ml 830 ml Output Total 1000 ml Balance 1300 ml 1080 ml 1210 ml 830 ml Intake Oral 0 ml 480 ml 360 ml 480 ml IV Total 1300 ml 1600 ml 850 ml 350 ml Output Urine Total 950 ml Estimated Blood Loss 50 ml # Voids 2 3 3 8 # Bowel Movements 0 0 Result Diagram: 02/15/17 1220 02/15/17 1220 Imaging Last 24 hours Impressions Tibia/Fibula X-Ray 02/15/17 1034 Signed Impressions: Service Date/Time: Wednesday, February 15, 2017 11:16 - CONCLUSION: 1. Redemonstration of lateral tibial plateau fracture. Jose Aguilar MD Knee X-Ray 02/15/17 1034 Signed Impressions: Service Date/Time: Wednesday, February 15, 2017 11:14 - CONCLUSION: 1. Nondisplaced slightly comminuted depressed lateral tibial plateau fracture. Jose Aguilar MD Foot X-Ray 02/15/17 1034 Signed Impressions: Service Date/Time: Wednesday, February 15, 2017 11:21 - CONCLUSION: 1. Probable small avulsion fracture off the medial distal first metatarsal. Correlation with physical exam is recommended. Jose Aguilar MD Ankle X-Ray 02/15/17 1034 Signed Impressions: Service Date/Time: Wednesday, February 15, 2017 11:17 - CONCLUSION: 1. No acute fracture or dislocation. Jose Aguilar MD Objective Remarks Awake, alert, NAD LLE: dressing and knee immobilizer in place, no drainage. +EHL/FHL, DF/PF. Mild TTP about great toe MTP joint. Denies numbness or tingling. Mild swelling. BCR Assessment & Plan Assessment and Plan 61yo F with closed left tibial plateau fracture 1. NWB LLE in . Ok to start passive ROM of knee with therapy. 2. Lovenox for DVT ppx while admitted, then xarelto after discharge. 3. Pain control 4. Elevate extremity 5. Ok for discharge when pain controlled. Patient planning to follow up in [place] after discharge. Lavinia Rae MD Feb 17, 2017 06:46
[2017-02-17] MEDS: INSULIN ASPART SUPPLEMENTAL SCALE SQ SCH ×4 (08:00→22:09)
[2017-02-17] MEDS: NEBIVOLOL 5 MG TAB PO SCH (08:01)
[2017-02-17] MEDS: PANTOPRAZOLE SOD 40 MG DELAYED RELEASE TAB PO SCH (08:01)
[2017-02-17] MEDS: DOCUSATE SODIUM 50 MG/SENNA 8.6 MG TAB PO SCH ×2 (08:01→22:08)
[2017-02-17] MEDS: ACETAMINOPHEN/HYDROcodone 325 MG/10 MG TAB PO PRN ×4 (08:01→22:09)
[2017-02-17] MEDS: FLUTICASONE PROPIONATE 50 MCG/ACT 16 GM NASAL SPRAY EACH NARE SCH ×2 (08:02→22:08)
[2017-02-17] MEDS: SODIUM CHLORIDE 0.9% FLUSH 10 ML FLUSH IV FLUSH SCH ×2 (08:08→22:09)
--- NOTE | 2017-02-17 09:48 | HHI.PR ---
Subjective Remarks in no acute distress. but complaining of moderate to severe pain to the left leg. no BM yet. Objective Vitals Vital Signs Date Time Temp Pulse Resp B/P (MAP) Pulse Ox O2 Delivery O2 Flow Rate FiO2 02/17/17 09:01 18 02/17/17 08:00 97.0 90 16 129/60 (83) 95 02/17/17 04:57 21 02/17/17 03:00 99.9 89 18 121/58 (79) 93 02/16/17 23:32 99.3 86 18 102/53 (69) 94 02/16/17 19:09 96.7 86 18 136/71 (92) 92 02/16/17 17:09 16 02/16/17 16:00 97.0 95 16 109/61 (77) 94 02/16/17 14:15 96.7 83 12 129/59 (82) 95 02/16/17 13:33 81 19 128/65 (86) 92 Nasal Cannula 4 02/16/17 13:00 83 19 134/67 (89) 94 Nasal Cannula 4 02/16/17 12:45 78 19 137/73 (94) 93 Nasal Cannula 4 02/16/17 12:39 98.9 82 19 136/62 (86) 95 Nasal Cannula 4 I/O 02/16/17 02/16/17 02/16/17 02/17/17 02/17/17 02/17/17 07:00 15:00 23:00 07:00 15:00 23:00 Intake Total 1300 ml 2080 ml 1210 ml 830 ml Output Total 1000 ml Balance 1300 ml 1080 ml 1210 ml 830 ml Intake Oral 0 ml 480 ml 360 ml 480 ml IV Total 1300 ml 1600 ml 850 ml 350 ml Output Urine Total 950 ml Estimated Blood Loss 50 ml # Voids 2 3 3 8 # Bowel Movements 0 0 Result Diagram: 02/15/17 1220 02/15/17 1220 Imaging Last Impressions Knee X-Ray 02/16/17 0000 Signed Impressions: Service Date/Time: Thursday, February 16, 2017 12:01 - CONCLUSION: 1. Excellent alignment of the tibial plateau fracture post plating. Duran Crum MD Tibia/Fibula X-Ray 02/15/17 1034 Signed Impressions: Service Date/Time: Wednesday, February 15, 2017 11:16 - CONCLUSION: 1. Redemonstration of lateral tibial plateau fracture. Jose Aguilar MD Foot X-Ray 02/15/17 1034 Signed Impressions: Service Date/Time: Wednesday, February 15, 2017 11:21 - CONCLUSION: 1. Probable small avulsion fracture off the medial distal first metatarsal. Correlation with physical exam is recommended. Jose Aguilar MD Ankle X-Ray 02/15/17 1034 Signed Impressions: Service Date/Time: Wednesday, February 15, 2017 11:17 - CONCLUSION: 1. No acute fracture or dislocation. Jose Aguilar MD Lower Extremity CT 02/15/17 0000 Signed Impressions: Service Date/Time: Wednesday, February 15, 2017 12:29 - CONCLUSION: Mildly depressed lateral tibial plateau fracture Price Downey MD Objective Remarks GENERAL: This is a well-nourished, well-developed patient, in no apparent distress. CARDIOVASCULAR: Regular rate and regular rhythm without murmurs, gallops, or rubs. RESPIRATORY: Clear to auscultation. Breath sounds equal bilaterally. No wheezes , rales, or rhonchi. GASTROINTESTINAL: Abdomen soft, non-tender, nondistended. Normal, active bowel sounds MUSCULOSKELETAL: left lower extremity in immobilizer NEURO: Alert & Oriented x4 to person, place, time, situation. Moves all ext x4 Procedures ORIF left tibia plateau fracture Medications and IVs Current Medications Ketorolac Tromethamine (Toradol Inj) 60 mg ONCE ONCE IM Last administered on 02/15/17 10:43; Start 02/15/17 at 10:45; Stop 02/15/17 at 10:46; Status DC Sodium Chloride (NS Flush) 2 ml UNSCH PRN IV FLUSH FLUSH AFTER USING IV ACCESS ; Start 02/15/17 at 11:45; Stop 02/17/17 at 07:18; Status DC Morphine Sulfate (Morphine Inj) 4 mg ONCE ONCE IV PUSH Last administered on 12:19; Start 02/15/17 at 12:15; Stop 02/15/17 at 12:17; Status DC Ondansetron HCl (Zofran Inj) 4 mg ONCE ONCE IV PUSH Last administered on 12:24; Start 02/15/17 at 12:15; Stop 02/15/17 at 12:17; Status DC Dextrose (D50w (Vial) Inj) 50 ml UNSCH PRN IV PUSH HYPOGLYCEMIA-SEE COMMENTS; Start 02/15/17 at 14:00 Glucagon (Glucagon Inj) 1 mg UNSCH PRN OTHER HYPOGLYCEMIA-SEE COMMENTS; Start 02/15/17 at 14:00 Insulin Aspart (NovoLOG SUPPLEMENTAL SCALE) 1 ACHS SLIDING SCALE SQ Last administered on 02/16/17 20:12; Start 02/15/17 at 17:00 Albuterol Sulfate (Proair Hfa Inh) 2 puff Q4H PRN INH SHORTNESS OF BREATH; Start 02/15/17 at 14:00 Atorvastatin Calcium (Lipitor) 20 mg HS PO Last administered on 02/16/17 19:54 ; Start 02/15/17 at 21:00 Montelukast Sodium (Singulair) 10 mg HS PO Last administered on 02/16/17 19:54 ; Start 02/15/17 at 21:00 Nebivolol (Bystolic) 5 mg DAILY PO Last administered on 02/17/17 08:01; Start 02/16/17 at 09:00 Pantoprazole Sodium (Protonix) 40 mg DAILY PO Last administered on 02/17/17 08 :01; Start 02/16/17 at 09:00 Fluticasone Propionate (Flonase Blake Spr) 1 spray BID EACH NARE Last administered on 02/17/17 08:02; Start 02/15/17 at 21:00 Sodium Chloride 1,000 ml @ 100 mls/hr Q10H IV Last administered on 02/16/17 19:49; Start 02/15/17 at 14:00 Ondansetron HCl (Zofran Inj) 4 mg Q8HR PRN IV PUSH NAUSEA Last administered on 02/17/17 05:09; Start 02/15/17 at 14:00 Morphine Sulfate (Morphine Inj) 2 mg Q4H PRN IV PUSH PAIN > 3 Last administered on 02/15/17 21:15; Start 02/15/17 at 14:00; Stop 02/15/17 at 23:15 ; Status DC Lactated Ringer's 1,000 ml @ 30 mls/hr Q24H PRN IV SEE LABEL COMMENTS; Start 02/15/17 at 20:00; Stop 02/18/17 at 19:59 Sodium Chloride 500 ml @ 30 mls/hr [id number] PRN IV SEE LABEL COMMENTS; Start at 20:00; Stop 02/18/17 at 19:59 Metoprolol Tartrate (Lopressor) 25 mg DOG GROOMER PRN PO SEE LABEL COMMENTS; Start 02/15/17 at 20:00; Stop 02/18/17 at 19:59 Povidone Iodine (Betadine 5% Antisepsis Kit) 1 applic DOG GROOMER PRN EACH NARE SEE LABEL COMMENTS; Start 02/15/17 at 20:00; Stop 02/18/17 at 19:59 Chlorhexidine Gluconate (Chlorhexidine 2% Cloth) 3 pack DOG GROOMER PRN TOPICAL SEE LABEL COMMENTS; Start 02/15/17 at 20:00; Stop 02/18/17 at 19:59 Insulin Human Regular (NovoLIN R INJ) See Protocol Table ... DOG GROOMER PRN SQ SEE PROTOCOL TABLE; Start 02/15/17 at 20:00; Stop 02/18/17 at 19:59 Zolpidem Tartrate (Ambien) 5 mg ONCE ONCE PO Last administered on 02/15/17 21 :15; Start 02/15/17 at 20:30; Stop 02/15/17 at 20:34; Status DC Melatonin (Melatonin) 10 mg ONCE ONCE PO ; Start 02/15/17 at 20:30; Stop at 20:34; Status DC Melatonin (Melatonin) 10 mg ONCE ONCE PO Last administered on 02/15/17 23:34 ; Start 02/15/17 at 20:45; Stop 02/15/17 at 20:46; Status DC Morphine Sulfate (Morphine Inj) 3 mg Q3H PRN IV PAIN > 3 Last administered on 02/17/17 02:10; Start 02/15/17 at 23:30; Stop 02/17/17 at 07:18; Status DC Acetaminophen 100 ml @ As Directed STK-MED ONCE IV ; Start 02/16/17 at 08:03; Stop 02/16/17 at 08:04; Status DC Cefazolin Sodium/ Dextrose 50 ml @ As Directed STK-MED ONCE .ROUTE Last administered on 02/16/17 10:16; Start 02/16/17 at 10:13; Stop 02/16/17 at 10:14 ; Status DC Gentamicin Sulfate (Gentamicin Inj) 240 mg STK-MED ONCE .ROUTE Last administered on 02/16/17 11:00; Start 02/16/17 at 10:13; Stop 02/16/17 at 10:14 ; Status DC Vancomycin HCl (Vancomycin Inj) 1,000 mg STK-MED ONCE .ROUTE Last administered on 02/16/17 11:20; Start 02/16/17 at 11:04; Stop 02/16/17 at 11:05; Status DC Bupivacaine HCl/ Epinephrine Bitart (Sensorcaine-Epinephrine 0.25% Inj) 50 ml STK-MED ONCE .ROUTE Last administered on 02/16/17 12:10; Start 02/16/17 at 12: 06; Stop 02/16/17 at 12:07; Status DC Sodium Chloride (NS Flush) 2 ml UNSCH PRN IV FLUSH FLUSH AFTER USING IV ACCESS ; Start 02/16/17 at 12:30 Sodium Chloride (NS Flush) 2 ml BID IV FLUSH Last administered on 02/17/17 08: 08; Start 02/16/17 at 21:00 Cefazolin Sodium 1000 mg/Sodium Chloride 100 ml @ 200 mls/hr Q6H IV Last administered on 02/17/17 00:56; Start 02/16/17 at 14:00; Stop 02/17/17 at 03:03 ; Status DC Miscellaneous Information (Post-op Orders (for Pharmacy)) STAT ONCE XX ; Start 02/16/17 at 12:30; Stop 02/16/17 at 12:44; Status DC Senna/Docusate Sodium (Fabiana-Colace) 1 tab BID PO Last administered on 08:01; Start 02/16/17 at 21:00 Morphine Sulfate (*morphine INJ PERIprocedure ONLY) 8 mg STK-MED ONCE .ROUTE Last administered on 02/16/17 12:56; Start 02/16/17 at 12:56; Stop 02/16/17 at 12:57; Status DC Miscellaneous Information ALL NURSING DEPARTME... UNSCH PRN .XX SEE LABEL COMMENTS; Start 02/16/17 at 13:15; Stop 02/17/17 at 13:14 Morphine Sulfate (*morphine INJ PERIprocedure ONLY) 8 mg STK-MED ONCE .ROUTE Last administered on 02/16/17 13:06; Start 02/16/17 at 13:06; Stop 02/16/17 at 13:07; Status DC Hydromorphone HCl (*DILAUDID PF INJ PERIprocedural ONLY) 1 mg STK-MED ONCE .ROUTE ; Start 02/16/17 at 13:23; Stop 02/16/17 at 13:24; Status DC Acetaminophen/ Hydrocodone Bitart ([place] 10-325 Mg) 1 tab Q4H PRN PO PAIN SCALE 4 TO 10 Last administered on 02/17/17 08:01; Start 02/17/17 at 07:15 A/P Problem List: (1) Tibial plateau fracture, left ICD Code: S82.142A - Displaced bicondylar fracture of left tibia, initial encounter for closed fracture Status: Acute Assessment and Plan A/P - left tibia plateau fracture after a fall s/p ORIF- continue pain control . ortho follow-up appreciated. -questionable distal first metatarsal fracture- podiatry was notified by the ER- surgical shoe per podiatry recommendations. -diabetes mellitus; hold metformin- accu-check with SSI -hypertension/dyslipidemia ; resumed home meds -immune deficiency; on IVIG transfusion q three weeks. ( last transfusion last week.) -DVT prophylaxis- Lovenox when ok with ortho. Discharge Planning dc home-likely tomorrow if pain is better controlled. Problem Qualifiers (1) Tibial plateau fracture, left: Qualified Codes: S82.142A - Displaced bicondylar fracture of left tibia, initial encounter for closed fracture Irma Guerrero MD Feb 17, 2017 09:48
[2017-02-17] MEDS ORDERED: ZOLPIDEM TARTRATE 5 MG TAB PO PRN (10:00)
[2017-02-17] MEDS: MONTELUKAST SODIUM 10 MG TAB PO SCH (22:08)
[2017-02-17] MEDS: ATORVASTATIN 20 MG TAB PO SCH (22:09)
[2017-02-18] MEDS: SODIUM CHLOR 0.9% 1000 ML INJ 1,000 ML IV SCH ×2 (02:00→12:00)
[2017-02-18 03:17] VITALS: BP 156/79; PULSE 89; RESP 18; TEMP 98.3; O2SAT 97
[2017-02-18] MEDS: ACETAMINOPHEN/HYDROcodone 325 MG/10 MG TAB PO PRN ×3 (03:49→14:46)
--- NOTE | 2017-02-18 07:24 | PD.ORT.PN ---
Subjective Subjective Remarks reports L knee pain and foot pain improved, otherwise doing well. Denies fevers chills, N/V Objective Vitals Vital Signs Date Time Temp Pulse Resp B/P (MAP) Pulse Ox O2 Delivery O2 Flow Rate FiO2 02/18/17 03:17 98.3 89 18 156/79 (104) 97 02/17/17 23:10 100.3 97 18 143/66 (91) 98 02/17/17 19:13 99.7 95 18 145/69 (94) 99 02/17/17 18:04 100.4 02/17/17 16:00 98.5 82 18 124/58 (80) 95 02/17/17 13:08 18 02/17/17 12:15 98.6 02/17/17 12:00 99.9 81 18 123/58 (79) 94 02/17/17 08:00 97.0 90 16 129/60 (83) 95 I/O 02/17/17 02/17/17 02/17/17 02/18/17 02/18/17 02/18/17 07:00 15:00 23:00 07:00 15:00 23:00 Intake Total 830 ml 480 ml 360 ml 360 ml Balance 830 ml 480 ml 360 ml 360 ml Intake Oral 480 ml 480 ml 360 ml 360 ml IV Total 350 ml # Voids 8 5 4 2 # Bowel Movements 0 0 0 Result Diagram: 02/15/17 1220 02/15/17 1220 Imaging Last 24 hours Impressions Tibia/Fibula X-Ray 02/15/17 1034 Signed Impressions: Service Date/Time: Wednesday, February 15, 2017 11:16 - CONCLUSION: 1. Redemonstration of lateral tibial plateau fracture. Jose Aguilar MD Knee X-Ray 02/15/17 1034 Signed Impressions: Service Date/Time: Wednesday, February 15, 2017 11:14 - CONCLUSION: 1. Nondisplaced slightly comminuted depressed lateral tibial plateau fracture. Jose Aguilar MD Foot X-Ray 02/15/17 1034 Signed Impressions: Service Date/Time: Wednesday, February 15, 2017 11:21 - CONCLUSION: 1. Probable small avulsion fracture off the medial distal first metatarsal. Correlation with physical exam is recommended. Jose Aguilar MD Ankle X-Ray 02/15/17 1034 Signed Impressions: Service Date/Time: Wednesday, February 15, 2017 11:17 - CONCLUSION: 1. No acute fracture or dislocation. Jose Aguilar MD Objective Remarks Awake, alert, NAD LLE: dressing and knee immobilizer in place, no drainage. +EHL/FHL, DF/PF. Mild TTP about great toe MTP joint. Denies numbness or tingling. Mild swelling. BCR Assessment & Plan Assessment and Plan 61yo F with closed left tibial plateau fracture 1. NWB LLE in [place]. Ok to start passive ROM of knee with therapy. 2. Lovenox for DVT ppx while admitted, then xarelto after discharge. 3. Pain control 4. Elevate extremity. Can start daily dressing changes with xeroform, 4x4 and JANIE 5. Ok for discharge when pain controlled. Patient planning to follow up in [place] after discharge. Lavinia Rae MD Feb 18, 2017 07:24
[2017-02-18 08:00] VITALS: BP 137/63; PULSE 85; RESP 17; TEMP 97.9; O2SAT 93
[2017-02-18] MEDS: INSULIN ASPART SUPPLEMENTAL SCALE SQ SCH ×2 (08:00→12:00)
[2017-02-18] MEDS: SODIUM CHLORIDE 0.9% FLUSH 10 ML FLUSH IV FLUSH SCH (09:00)
[2017-02-18] MEDS: PANTOPRAZOLE SOD 40 MG DELAYED RELEASE TAB PO SCH (09:35)
[2017-02-18] MEDS: DOCUSATE SODIUM 50 MG/SENNA 8.6 MG TAB PO SCH (09:35)
[2017-02-18] MEDS: NEBIVOLOL 5 MG TAB PO SCH (09:36)
[2017-02-18] MEDS: FLUTICASONE PROPIONATE 50 MCG/ACT 16 GM NASAL SPRAY EACH NARE SCH (09:37)
--- NOTE | 2017-02-18 09:39 | HHI.PR ---
Subjective Remarks in no acute distress. pain is somewhat better. had a low grade fever last night. d/w the RN and no other acute issues over night. Objective Vitals Vital Signs Date Time Temp Pulse Resp B/P (MAP) Pulse Ox O2 Delivery O2 Flow Rate FiO2 02/18/17 08:00 97.9 85 17 137/63 (87) 93 02/18/17 03:17 98.3 89 18 156/79 (104) 97 02/17/17 23:10 100.3 97 18 143/66 (91) 98 02/17/17 19:13 99.7 95 18 145/69 (94) 99 02/17/17 18:04 100.4 02/17/17 16:00 98.5 82 18 124/58 (80) 95 02/17/17 13:08 18 02/17/17 12:15 98.6 02/17/17 12:00 99.9 81 18 123/58 (79) 94 I/O 02/17/17 02/17/17 02/17/17 02/18/17 02/18/17 02/18/17 07:00 15:00 23:00 07:00 15:00 23:00 Intake Total 830 ml 480 ml 360 ml 360 ml Balance 830 ml 480 ml 360 ml 360 ml Intake Oral 480 ml 480 ml 360 ml 360 ml IV Total 350 ml # Voids 8 5 4 2 # Bowel Movements 0 0 0 Result Diagram: 02/15/17 1220 02/15/17 1220 Imaging Last Impressions Knee X-Ray 02/16/17 0000 Signed Impressions: Service Date/Time: Thursday, February 16, 2017 12:01 - CONCLUSION: 1. Excellent alignment of the tibial plateau fracture post plating. Duran Crum MD Tibia/Fibula X-Ray 02/15/17 1034 Signed Impressions: Service Date/Time: Wednesday, February 15, 2017 11:16 - CONCLUSION: 1. Redemonstration of lateral tibial plateau fracture. Jose Aguilar MD Foot X-Ray 02/15/17 1034 Signed Impressions: Service Date/Time: Wednesday, February 15, 2017 11:21 - CONCLUSION: 1. Probable small avulsion fracture off the medial distal first metatarsal. Correlation with physical exam is recommended. Jose Aguilar MD Ankle X-Ray 02/15/17 1034 Signed Impressions: Service Date/Time: Wednesday, February 15, 2017 11:17 - CONCLUSION: 1. No acute fracture or dislocation. Jose Aguilar MD Lower Extremity CT 02/15/17 0000 Signed Impressions: Service Date/Time: Wednesday, February 15, 2017 12:29 - CONCLUSION: Mildly depressed lateral tibial plateau fracture Price Downey MD Objective Remarks GENERAL: This is a well-nourished, well-developed patient, in no apparent distress. CARDIOVASCULAR: Regular rate and regular rhythm without murmurs, gallops, or rubs. RESPIRATORY: Clear to auscultation. Breath sounds equal bilaterally. No wheezes , rales, or rhonchi. GASTROINTESTINAL: Abdomen soft, non-tender, nondistended. Normal, active bowel sounds MUSCULOSKELETAL: left lower extremity in immobilizer NEURO: Alert & Oriented x4 to person, place, time, situation. Moves all ext x4 Procedures ORIF left tibia plateau fracture Medications and IVs Current Medications Ketorolac Tromethamine (Toradol Inj) 60 mg ONCE ONCE IM Last administered on 02/15/17 10:43; Start 02/15/17 at 10:45; Stop 02/15/17 at 10:46; Status DC Sodium Chloride (NS Flush) 2 ml UNSCH PRN IV FLUSH FLUSH AFTER USING IV ACCESS ; Start 02/15/17 at 11:45; Stop 02/17/17 at 07:18; Status DC Morphine Sulfate (Morphine Inj) 4 mg ONCE ONCE IV PUSH Last administered on 12:19; Start 02/15/17 at 12:15; Stop 02/15/17 at 12:17; Status DC Ondansetron HCl (Zofran Inj) 4 mg ONCE ONCE IV PUSH Last administered on 12:24; Start 02/15/17 at 12:15; Stop 02/15/17 at 12:17; Status DC Dextrose (D50w (Vial) Inj) 50 ml UNSCH PRN IV PUSH HYPOGLYCEMIA-SEE COMMENTS; Start 02/15/17 at 14:00 Glucagon (Glucagon Inj) 1 mg UNSCH PRN OTHER HYPOGLYCEMIA-SEE COMMENTS; Start 02/15/17 at 14:00 Insulin Aspart (NovoLOG SUPPLEMENTAL SCALE) 1 ACHS SLIDING SCALE SQ Last administered on 02/16/17 20:12; Start 02/15/17 at 17:00 Albuterol Sulfate (Proair Hfa Inh) 2 puff Q4H PRN INH SHORTNESS OF BREATH; Start 02/15/17 at 14:00 Atorvastatin Calcium (Lipitor) 20 mg HS PO Last administered on 02/17/17 22:09 ; Start 02/15/17 at 21:00 Montelukast Sodium (Singulair) 10 mg HS PO Last administered on 02/17/17 22:08 ; Start 02/15/17 at 21:00 Nebivolol (Bystolic) 5 mg DAILY PO Last administered on 02/17/17 08:01; Start 02/16/17 at 09:00 Pantoprazole Sodium (Protonix) 40 mg DAILY PO Last administered on 02/17/17 08 :01; Start 02/16/17 at 09:00 Fluticasone Propionate (Flonase Blake Spr) 1 spray BID EACH NARE Last administered on 02/17/17 22:08; Start 02/15/17 at 21:00 Sodium Chloride 1,000 ml @ 100 mls/hr Q10H IV Last administered on 02/16/17 19:49; Start 02/15/17 at 14:00 Ondansetron HCl (Zofran Inj) 4 mg Q8HR PRN IV PUSH NAUSEA Last administered on 02/17/17 05:09; Start 02/15/17 at 14:00 Morphine Sulfate (Morphine Inj) 2 mg Q4H PRN IV PUSH PAIN > 3 Last administered on 02/15/17 21:15; Start 02/15/17 at 14:00; Stop 02/15/17 at 23:15 ; Status DC Lactated Ringer's 1,000 ml @ 30 mls/hr Q24H PRN IV SEE LABEL COMMENTS; Start 02/15/17 at 20:00; Stop 02/18/17 at 19:59 Sodium Chloride 500 ml @ 30 mls/hr [id number] PRN IV SEE LABEL COMMENTS; Start at 20:00; Stop 02/18/17 at 19:59 Metoprolol Tartrate (Lopressor) 25 mg [employer] PRN PO SEE LABEL COMMENTS; Start 02/15/17 at 20:00; Stop 02/18/17 at 19:59 Povidone Iodine (Betadine 5% Antisepsis Kit) 1 applic [employer] PRN EACH NARE SEE LABEL COMMENTS; Start 02/15/17 at 20:00; Stop 02/18/17 at 19:59 Chlorhexidine Gluconate (Chlorhexidine 2% Cloth) 3 pack [employer] PRN TOPICAL SEE LABEL COMMENTS; Start 02/15/17 at 20:00; Stop 02/18/17 at 19:59 Insulin Human Regular (NovoLIN R INJ) See Protocol Table ... [employer] PRN SQ SEE PROTOCOL TABLE; Start 02/15/17 at 20:00; Stop 02/18/17 at 19:59 Zolpidem Tartrate (Ambien) 5 mg ONCE ONCE PO Last administered on 02/15/17 21 :15; Start 02/15/17 at 20:30; Stop 02/15/17 at 20:34; Status DC Melatonin (Melatonin) 10 mg ONCE ONCE PO ; Start 02/15/17 at 20:30; Stop at 20:34; Status DC Melatonin (Melatonin) 10 mg ONCE ONCE PO Last administered on 02/15/17 23:34 ; Start 02/15/17 at 20:45; Stop 02/15/17 at 20:46; Status DC Morphine Sulfate (Morphine Inj) 3 mg Q3H PRN IV PAIN > 3 Last administered on 02/17/17 02:10; Start 02/15/17 at 23:30; Stop 02/17/17 at 07:18; Status DC Acetaminophen 100 ml @ As Directed STK-MED ONCE IV ; Start 02/16/17 at 08:03; Stop 02/16/17 at 08:04; Status DC Cefazolin Sodium/ Dextrose 50 ml @ As Directed STK-MED ONCE .ROUTE Last administered on 02/16/17 10:16; Start 02/16/17 at 10:13; Stop 02/16/17 at 10:14 ; Status DC Gentamicin Sulfate (Gentamicin Inj) 240 mg STK-MED ONCE .ROUTE Last administered on 02/16/17 11:00; Start 02/16/17 at 10:13; Stop 02/16/17 at 10:14 ; Status DC Vancomycin HCl (Vancomycin Inj) 1,000 mg STK-MED ONCE .ROUTE Last administered on 02/16/17 11:20; Start 02/16/17 at 11:04; Stop 02/16/17 at 11:05; Status DC Bupivacaine HCl/ Epinephrine Bitart (Sensorcaine-Epinephrine 0.25% Inj) 50 ml STK-MED ONCE .ROUTE Last administered on 02/16/17 12:10; Start 02/16/17 at 12: 06; Stop 02/16/17 at 12:07; Status DC Sodium Chloride (NS Flush) 2 ml UNSCH PRN IV FLUSH FLUSH AFTER USING IV ACCESS ; Start 02/16/17 at 12:30 Sodium Chloride (NS Flush) 2 ml BID IV FLUSH Last administered on 02/17/17 22: 09; Start 02/16/17 at 21:00 Cefazolin Sodium 1000 mg/Sodium Chloride 100 ml @ 200 mls/hr Q6H IV Last administered on 02/17/17 00:56; Start 02/16/17 at 14:00; Stop 02/17/17 at 03:03 ; Status DC Miscellaneous Information (Post-op Orders (for Pharmacy)) STAT ONCE XX ; Start 02/16/17 at 12:30; Stop 02/16/17 at 12:44; Status DC Senna/Docusate Sodium (Fabiana-Colace) 1 tab BID PO Last administered on 22:08; Start 02/16/17 at 21:00 Morphine Sulfate (*morphine INJ PERIprocedure ONLY) 8 mg STK-MED ONCE .ROUTE Last administered on 02/16/17 12:56; Start 02/16/17 at 12:56; Stop 02/16/17 at 12:57; Status DC Miscellaneous Information ALL NURSING DEPARTME... UNSCH PRN .XX SEE LABEL COMMENTS; Start 02/16/17 at 13:15; Stop 02/17/17 at 13:14; Status DC Morphine Sulfate (*morphine INJ PERIprocedure ONLY) 8 mg STK-MED ONCE .ROUTE Last administered on 02/16/17 13:06; Start 02/16/17 at 13:06; Stop 02/16/17 at 13:07; Status DC Hydromorphone HCl (*DILAUDID PF INJ PERIprocedural ONLY) 1 mg STK-MED ONCE .ROUTE ; Start 02/16/17 at 13:23; Stop 02/16/17 at 13:24; Status DC Acetaminophen/ Hydrocodone Bitart (Custer 10-325 Mg) 1 tab Q4H PRN PO PAIN SCALE 4 TO 10 Last administered on 02/18/17 03:49; Start 02/17/17 at 07:15 Zolpidem Tartrate (Ambien) 5 mg HS PRN PO INSOMNIA Last administered on 22:08; Start 02/17/17 at 10:00 A/P Assessment and Plan A/P - left tibia plateau fracture after a fall s/p ORIF- continue pain control . ortho follow-up appreciated. -low grade fever last night- with no recurrence- will monitor. -questionable distal first metatarsal fracture- podiatry was notified by the ER- surgical shoe per podiatry recommendations. -diabetes mellitus; hold metformin- accu-check with SSI -hypertension/dyslipidemia ; resumed home meds -immune deficiency; on IVIG transfusion q three weeks. ( last transfusion last week.) -DVT prophylaxis- Lovenox when ok with ortho. Discharge Planning dc home later this afternoon if pain is controlled and remains afebrile. see med list. f/u; pcp and ortho. d/w the patient and RN. Irma Guerrero MD Feb 18, 2017 09:39
--- NOTE | 2017-02-18 09:40 | HHI.DS ---
Discharge Summary Admission Date Feb 15, 2017 at 13:47 Discharge Date: Feb 18, 2017 Admitting Diagnosis tibial plateau fracture (1) Tibial plateau fracture, left ICD Code: S82.142A - Displaced bicondylar fracture of left tibia, initial encounter for closed fracture Status: Acute Procedures ORIF left tibia plateau fracture Brief History - From Admission patient is a 61 y/o female with history of asthma, diabetes,hypertension,immune deficiency, who was brought to ER after a fall. she [place] dock debris hit her after which she fell on her left leg and started to have pain to the left leg and left foot. she denies any head trauma or syncope. pain was mild to moderate at the time of my evaluation. she denies any chest pain, abdominal pain, dizziness or any other complaints. CBC/BMP: 02/15/17 1220 02/15/17 1220 Significant Findings Laboratory Tests Test 02/15/17 12:20 Monocytes (%) (Auto) 9.9 % (0.0-8.0) Estimat Glomerular Filtration Rate 75 ML/MIN (>89) Imaging Last Impressions Knee X-Ray 02/16/17 0000 Signed Impressions: Service Date/Time: Thursday, February 16, 2017 12:01 - CONCLUSION: 1. Excellent alignment of the tibial plateau fracture post plating. Duran Crum MD Tibia/Fibula X-Ray 02/15/17 1034 Signed Impressions: Service Date/Time: Wednesday, February 15, 2017 11:16 - CONCLUSION: 1. Redemonstration of lateral tibial plateau fracture. Jose Aguilar MD Foot X-Ray 02/15/17 1034 Signed Impressions: Service Date/Time: Wednesday, February 15, 2017 11:21 - CONCLUSION: 1. Probable small avulsion fracture off the medial distal first metatarsal. Correlation with physical exam is recommended. Jose Aguilar MD Ankle X-Ray 02/15/17 1034 Signed Impressions: Service Date/Time: Wednesday, February 15, 2017 11:17 - CONCLUSION: 1. No acute fracture or dislocation. Jose Aguilar MD Lower Extremity CT 02/15/17 0000 Signed Impressions: Service Date/Time: Wednesday, February 15, 2017 12:29 - CONCLUSION: Mildly depressed lateral tibial plateau fracture Price Downey MD PE at Discharge GENERAL: This is a well-nourished, well-developed patient, in no apparent distress. CARDIOVASCULAR: Regular rate and regular rhythm without murmurs, gallops, or rubs. RESPIRATORY: Clear to auscultation. Breath sounds equal bilaterally. No wheezes , rales, or rhonchi. GASTROINTESTINAL: Abdomen soft, non-tender, nondistended. Normal, active bowel sounds MUSCULOSKELETAL: left lower extremity in immobilizer NEURO: Alert & Oriented x4 to person, place, time, situation. Moves all ext x4 Hospital Course - left tibia plateau fracture after a fall s/p ORIF- continue pain control . ortho follow-up appreciated. -low grade fever last night- with no recurrence- will monitor. -questionable distal first metatarsal fracture- podiatry was notified by the ER- surgical shoe per podiatry recommendations. -diabetes mellitus; hold metformin- accu-check with SSI -hypertension/dyslipidemia ; resumed home meds -immune deficiency; on IVIG transfusion q three weeks. ( last transfusion last week.) -DVT prophylaxis- Lovenox when ok with ortho. Pt Condition on Discharge: Fair Discharge Disposition: Disch w/ Home Health Serv Discharge Time: <= 30 minutes Discharge Instructions DIET: Follow Instructions for: Heart Healthy Diet, Diabetic Diet Activities you can perform: Non Weight Bearing Follow up Referrals: Orthopedics - 2 Weeks [facility] with Lavinia Rae MD PCP Follow-up Podiatry New Medications: Hydrocodone-Acetaminophen (Hydrocodone-Acetaminophen) 10-325 mg Tab 1 TAB PO Q4H PRN for PAIN, #60 TAB 0 Refills Rivaroxaban (Xarelto) 10 Mg Tab 10 MG PO DAILY for Blood Clot Prevention, #14 TAB 0 Refills Walker/Adult/Folding (Walker/Adult/Folding) 1 Mis Mis EA .ROUTE DIRECTED, #1 0 Refills Continued Medications: Albuterol 18 GM Inh (Ventolin Hfa 18 GM Inh) 90 Mcg/Act Aer 2 PUFF INH Q4H PRN for SHORTNESS OF BREATH, #1 INHALER 0 Refills Atorvastatin (Lipitor) 20 Mg Tab 20 MG PO HS for Cholesterol Management, #30 TAB [address] (Nexium) 40 Mg Capdr 40 MG PO DAILY, CAP 0 Refills Fenofibrate (Tricor) 145 Mg Tab 145 MG PO DAILY, #30 TAB 0 Refills Takw with food. Fexofenadine (Libia Allergy) 60 Mg Tab 60 MG PO DAILY for Allergy Management, #60 TAB 0 Refills Fluticasone Nasal Baker (Flonase Nasal Baker) 50 Mcg/Act Baker 50 MCG EACH NARE BID for Allergies, #1 BOTTLE 0 Refills Gabapentin (Gabapentin) 600 Mg Tab 600 MG PO BID, #60 TAB 0 Refills Immune Globulin (Human) (Gammagard Liquid) 10 % Inj IV EVERY 3 WEEKS Melatonin (Melatonin) 10 Mg-1 Mg Tab 10 MG PO HS PRN for SLEEP, TAB 0 Refills Metformin (Metformin) 1,000 Mg Tab 1000 MG PO BIDPC for Blood Sugar Management, #60 TAB 0 Refills Montelukast (Singulair) 10 Mg Tab 10 MG PO HS, #30 TAB 0 Refills Nebivolol (Bystolic) 5 Mg Tab 5 MG PO DAILY for Blood Pressure Management, #30 TAB 0 Refills Ranitidine (Zantac) 300 Mg Tab 300 MG PO BID, TAB 0 Refills Zolpidem (Ambien) 5 Mg Tab 5 MG PO HS PRN for INSOMNIA, TAB 0 Refills Irma Guerrero MD Feb 18, 2017 09:40
--- NOTE | 2017-02-18 09:41 | HHI.FF ---
Face to Face Verification Diagnosis: (1) Tibial plateau fracture, left Physical Therapy Order: Evaluate and Treat I have seen patient Martha Hadley on 02/18/17. My clinical findings support the need for the requested home health care services because: Ltd mobility - disease progression I certify that my clinical findings support that this patient is homebound because: Unsteady gait/balance Irma Guerrero MD Feb 18, 2017 09:41
[2017-02-18 12:00] VITALS: BP 131/65; PULSE 82; RESP 18; TEMP 97.5; O2SAT 94
[2017-02-18] MEDS ORDERED: WHEEMIS3 (12:28)
--- NOTE | 2017-02-22 11:41 | MP ---
cc: KAIT MALDONADO MD DATE OF SURGERY: 02/17/2017 PREOPERATIVE DIAGNOSIS Closed left lateral tibial plateau fracture. POSTOPERATIVE DIAGNOSIS Closed left lateral tibial plateau fracture. PROCEDURE Open reduction, internal fixation left lateral tibial plateau fracture. SURGEON Kait Maldonado MD. ANESTHESIA General. COMPLICATIONS None. SPECIMEN None. ESTIMATED BLOOD LOSS Approximately 75 cc. INDICATIONS FOR PROCEDURE The patient is a 61-year-old female who presented to the emergency department with left knee pain after she states she was hit by fallen debris [place] the [place]. The patient does also report left foot pain. Discussion regarding options of treatment with nonoperative versus operative management were discussed with the patient. At this time given the depression of the joint surface, I have recommended operative management in the form of open reduction, internal fixation for the left lateral tibial plateau fracture. The risks of surgery including but not limited to risk of infection, malunion, nonunion, chronic knee pain and arthritis, possible damage to neurovascular structures, hardware failure or malposition, possible need for further surgery and other unforeseen complications were discussed with the patient. At this time she has elected to proceed with the aforementioned procedure. DESCRIPTION OF PROCEDURE The patient was taken back to the operating room and placed supine on the operating room table. General anesthesia then ensued. A timeout was performed to identify the correct patient, side, site and procedure to be performed. A tourniquet was used to help minimize blood loss. Preoperative antibiotics were given prior to tourniquet inflation. We then turned our attention to the lateral aspect of the knee and lower leg. A lateral slight "S" or hockey-stick incision was made over the lateral tibial plateau and proximal aspect of the tibia. A small arthrotomy was made on the lateral aspect of the knee to allow for viewing into the joint line. There did not appear to be any meniscal injury that was apparent. At that time a small cortical window was made in the proximal aspect of the tibia on the lateral aspect to allow for tamping up of the joint surface. With the use of fluoroscopy the joint surface was tamped up and the defect was backfilled with allograft cancellous chips. When the joint surface was in an appropriate position and backfilled a lateral tibial plateau plate was then placed. Proximal locking screws were used to allow support for the joint surface that had been tamped up. Distal non-locking screws were then used to hold the plate to the proximal aspect of the tibia. Again, fluoroscopy was used to ensure adequate joint alignment and positioning of all screws. The tourniquet was then released and all bleeding was adequately managed with the use of coagulation and hemostasis was achieved. The wound was copiously irrigated with normal saline laden with gentamicin. Given the patient's history of immunocompromise, one gram of vancomycin powder was placed into the wound. The wound was then closed with #1 Vicryl to close the small arthrotomy and interrupted Vicryl in the subcutaneous tissues. Nylon was then used on the skin for closure. The patient was placed into sterile dressings and awoken from general anesthesia. The patient was placed back into a knee immobilizer. DISPOSITION The patient was instructed to remain non-weightbearing to the left lower extremity. The patient is instructed to follow-up two weeks after surgery; however, patient states she is planning to return to [place] and will follow-up there. MD JENNY Deluca/BECKY /10:49 AM /11:19 AM
== END 2017-02-18 15:55 | disposition home health service (06) | DRG 493 ==
LOC: NEPD 10:09 → NEDA 13:47 → N06B 15:39
PROVIDERS: ADMIT Internal Medicine; ATTEND Internal Medicine
PROC: 0QSH04Z Reposition Left Tibia with Internal Fixation Device, Open Approach (ICD-10-PCS; principal; 2017-02-16 09:50)
DX: S82.142A Displaced bicondylar fracture of left tibia, initial encounter for closed fracture (principal); D84.9 Immunodeficiency, unspecified; I10 Essential (primary) hypertension; J45.909 Unspecified asthma, uncomplicated; R50.9 Fever, unspecified; S92.312A Displaced fracture of first metatarsal bone, left foot, initial encounter for closed fracture; E78.5 Hyperlipidemia, unspecified; E11.9 Type 2 diabetes mellitus without complications; W18.09XA Striking against other object with subsequent fall, initial encounter; Y93.01 Activity, walking, marching and hiking; Y92.832 Beach as the place of occurrence of the external cause; Z79.84 Long term (current) use of oral hypoglycemic drugs; Z88.2 Allergy status to sulfonamides
CPT/HCPCS: 73560; 73564; 73590; 73610; 73630; 73700; 76000; 80053; 82948; 85025; 93005; 94150; 96372; 96374; 96375; C1713; J0131; J0690; J1100; J1170; J1580; J1815; J1885; J2250; J2270; J2370; J2405; J2710; J3010; J3370; J7030; L1830